=== PATIENT | female | born 2000 | race Caucasian/White ===

== ENCOUNTER 2021-01-16 20:15 | Emergency (ER) | payer OTHER ==
[~2021-01-16] VITALS: Ht 170.2 cm; Wt 131.5 kg
[2021-01-16 21:03] LABS: URINE BILIRUBIN NEGATIVE (Negative); URINE BLOOD NEGATIVE (Negative); URINE CLARITY CLEAR; URINE COLOR YELLOW; URINE GLUCOSE-RANDOM NEGATIVE (Negative); URINE KETONES NEGATIVE (Negative); URINE LEUKOCYTES-REFLEX TRACE (Negative); URINE NITRITE-REFLEX NEGATIVE (Negative); URINE PROTEIN NEGATIVE (Negative); URINE UROBILINOGEN 0.2 E.U./dl (0.2-1.0)
[2021-01-16 21:44] LABS: CASTS None Seen /LPF (None Seen); SQUAMOUS 0-3 Few /LPF (0-3)
[2021-01-16 21:45] LABS: BACTERIA-REFLEX 1-9 Few /HPF (None Seen); CRYSTALS None Seen /LPF (None Seen); URINE RBC None Seen /HPF (0-2); URINE WBC-REFLEX 0-5 Rare /HPF (0-5)
[2021-01-16] MEDS ORDERED: CEPHALEXIN500 MG PO (22:34)
[2021-01-16] MEDS ORDERED: DIFLUCAN150 MG PO (22:34)
[2021-01-16] MEDS ORDERED: ACETAMINOPHEN-1 EAC2 PO (22:35)
[2021-01-16 22:48] VITALS: BP 121/70
== END 2021-01-16 22:49 | disposition home or self-care (01) ==
LOC: M.ERS 20:15
PROVIDERS: Nurse Practitioner Family
DX: N39.0 Urinary tract infection, site not specified (principal)